=== PATIENT | male | born 1945 | race Caucasian/White ===

== ENCOUNTER → 2018-06-07 06:41 | Outpatient (CLI) | payer MEDICARE, OTHER, SELFPAY ==
[2018-06-07 07:37] LABS: Add Manual Diff / Slide Review NO; Basophils Percent Auto 0.6 % (0-2); Eosinophils Percent Auto 1.6 % (2-4); Hematocrit 42.6 % (41-53); Hemoglobin 14.5 g/dL (13.5-17.5); Lymphocytes Percent Auto 38.9 % (25-40); Mean Corpuscular HGB Conc 33.9 % (30-36); Mean Corpuscular Hemoglobin 31.3 PG (26-34); Mean Corpuscular Volume 92.3 fL (80-100); Neutrophils Absolute Auto 2000 /uL (3000-5900); Neutrophils Percent Auto 46.9 % (50-75); Platelet Count 150 X10^3/uL (150-400); Red Blood Cell Count 4.61 X10^6/uL (4.5-5.9); Red Cell Distribution Width 13.2 % (11.6-14.8); White Blood Cell Count 4.3 X10^3/uL (4.5-11.0)
[2018-06-07 07:46] LABS: Alanine Aminotransferase 33 IU/L (21-72); Albumin 4.8 g/dL (3.5-5.0); Albumin Globulin Ratio 1.9 (1.0-2.8); Alkaline Phosphatase 45 U/L (38-126); Aspartate Aminotransferase 26 IU/L (17-59); Bilirubin Total 0.7 mg/dL (0.2-1.3); Blood Urea Nitrogen 19 mg/dL (9-20); Calcium 9.6 mg/dL (8.4-10.2); Carbon Dioxide 30 mmol/L (22-32); Chloride 104 mmol/L (98-107); Cholesterol 142 mg/dL (140-199); Estimated Glomerular Filt Rate > 60.0 mL/min (>60); Globulin 2.5 g/dL (1.7-4.1); Glucose 140 mg/dL (80-110); HDL Cholesterol 47 mg/dL (40-60); HEMOLYSIS < 15 (0-50); LDL Cholesterol Calculated 38 mg/dL (<100); Potassium 4.8 mmol/L (3.4-5.1); Sodium 146 mmol/L (137-145); Total Protein 7.3 g/dL (6.3-8.2); Triglycerides 286 mg/dL (35-150)
[2018-06-07 08:18] LABS: Erythrocyte Sedimentation Rate 10 MM/HR (0-15)
== END ==
PROVIDERS: Visit Provider Internal Medicine Pulmonary Disease
DX: L40.9 Psoriasis, unspecified (principal); E11.40 Type 2 diabetes mellitus with diabetic neuropathy, unspecified; E11.65 Type 2 diabetes mellitus with hyperglycemia; K21.0 Gastro-esophageal reflux disease with esophagitis; E78.2 Mixed hyperlipidemia
CPT/HCPCS: 36415; 80053; 80061; 83036; 85025; 85651

== ENCOUNTER → 2019-02-28 08:34 | Outpatient (CLI) | payer MEDICARE, OTHER, SELFPAY ==
[2019-02-28 10:54] LABS: Alanine Aminotransferase 27 IU/L (21-72); Albumin 4.6 g/dL (3.5-5.0); Albumin Globulin Ratio 1.6 (1.0-2.8); Alkaline Phosphatase 45 U/L (38-126); Aspartate Aminotransferase 25 IU/L (17-59); Bilirubin Total 0.9 mg/dL (0.2-1.3); Blood Urea Nitrogen 19 mg/dL (9-20); C-Reactive Protein Quant 0.6 mg/dL (<1.0); Calcium 9.4 mg/dL (8.4-10.2); Carbon Dioxide 29 mmol/L (22-32); Chloride 101 mmol/L (98-107); Cholesterol 225 mg/dL (140-199); Estimated Glomerular Filt Rate > 60.0 mL/min (>60); Globulin 2.8 g/dL (1.7-4.1); Glucose 152 mg/dL (80-110); HDL Cholesterol 39 mg/dL (40-60); HEMOLYSIS 19 (0-50); LDL Cholesterol Calculated 115 mg/dL (<100); Lipase 47 U/L (23-300); Potassium 4.3 mmol/L (3.4-5.1); Sodium 139 mmol/L (137-145); Total Protein 7.4 g/dL (6.3-8.2); Triglycerides 353 mg/dL (35-150)
[2019-02-28 10:55] LABS: Add Manual Diff / Slide Review NO; Basophils Absolute Auto 0 /uL (0-100); Basophils Percent Auto 0.5 % (0-2); Eosinophils Absolute Auto 100 /uL (0-450); Eosinophils Percent Auto 2.1 % (2-4); Hematocrit 42.5 % (41-53); Hemoglobin 14.4 g/dL (13.5-17.5); Lymphocytes Absolute Auto 1300 /uL (1100-4500); Lymphocytes Percent Auto 36.3 % (25-40); Mean Corpuscular HGB Conc 33.8 % (30-36); Mean Corpuscular Hemoglobin 31.2 PG (26-34); Mean Corpuscular Volume 92.2 fL (80-100); Monocytes Absolute Auto 400 /uL (0-900); Monocytes Percent Auto 12.1 % (3-14); Neutrophils Absolute Auto 1800 /uL (1500-7000); Platelet Count 161 X10^3/uL (150-400); Red Blood Cell Count 4.61 X10^6/uL (4.5-5.9); Red Cell Distribution Width 13.6 % (11.6-14.8); White Blood Cell Count 3.6 X10^3/uL (4.5-11.0)
[2019-02-28 11:21] LABS: Prostate Specific Antigen Scrn 0.096 ng/mL (0.1-4.0)
[2019-02-28 11:54] LABS: Erythrocyte Sedimentation Rate 9 MM/HR (0-15)
[2019-02-28 12:01] LABS: Free T4, Direct Thyroxine 1.26 ng/dL (0.78-2.19)
[2019-02-28 12:04] LABS: Vitamin D 25 Hydroxy (D3) 29.6 ng/mL (30.0-100.0)
[2019-02-28 12:16] LABS: Thyroid Stimulating Hormone 1.95 uIU/mL (0.47-4.68)
[2019-02-28 14:34] LABS: Hemoglobin A1C% w Est Avg Glu 6.4 % (4.0-6.0)
[2019-02-28 18:29] LABS: Amylase 58 U/L (30-110)
== END ==
PROVIDERS: Visit Provider Internal Medicine Pulmonary Disease
DX: K21.0 Gastro-esophageal reflux disease with esophagitis (principal); E11.40 Type 2 diabetes mellitus with diabetic neuropathy, unspecified; E11.65 Type 2 diabetes mellitus with hyperglycemia; R10.9 Unspecified abdominal pain; J45.21 Mild intermittent asthma with (acute) exacerbation; Z00.00 Encounter for general adult medical examination without abnormal findings
CPT/HCPCS: 36415; 80053; 80061; 82150; 82306; 83036; 83690; 84153; 84439; 84443; 85025; 85651; 86140; G0103

== ENCOUNTER 2019-03-04 05:06 | Emergency (ER) | payer MEDICARE, OTHER, SELFPAY ==
[2019-03-04 05:20] VITALS: BP 173/89; PULSE 76; RESP 18; TEMP 36.8; O2SAT 96; BMI 31.2
--- NOTE | 2019-03-04 05:22 | DI.RAD.S_ITS ---
PROCEDURE: XR CHEST 1V INDICATIONS: chest pain TECHNIQUE: One view of the chest was acquired. COMPARISON: [facility], , CHEST 2 VIEW, 01/14/2011, 13:20. FINDINGS: Surgical changes and devices: None. Lungs and pleura: Lungs are clear. No pleural effusions or pneumothorax. Mediastinum: Mediastinal contours appear normal. Heart size is normal. Bones and chest wall: No suspicious bony lesions. Overlying soft tissues appear unremarkable. IMPRESSION: Normal for age, source of current chest pain symptoms is not seen. Dictated by: Lucho Henriquez M.D. on 03/04/2019 at 8:11 Approved by: Lucho Henriquez M.D. on 03/04/2019 at 8:12
--- NOTE | 2019-03-04 05:22 | DI.CT.S_ITS ---
PROCEDURE: CT ABDOMEN PELVIS W CON INDICATIONS: pain TECHNIQUE: After the administration of intravenous contrast, 5 mm thick sections acquired from the diaphragm to the symphysis. 5 mm coronal and sagittal reformats were acquired. For radiation dose reduction, the following was used: automated exposure control, adjustment of mA and/or kV according to patient size. COMPARISON: None. FINDINGS: Image quality: Excellent. ABDOMEN: Lung bases: Lung bases are clear. Heart size is normal. Solid organs: Liver is normal in size and enhancement. The gallbladder fossa margin shows higher radiodensity than the liver parenchyma elsewhere, consistent with hepatic steatosis and focal sparing. Gallbladder appears normal. Biliary system is non dilated. Pancreas enhances normally. Spleen is normal in size and enhancement. No adrenal nodules. Kidneys demonstrate normal size and enhancement, without hydronephrosis. There are several simple water density renal cortical cysts incidentally noted, largest of which is at the lower third collecting system margin of the left kidney, measuring up to 2.9 cm. Peritoneum and bowel: Bowel loops demonstrate normal wall thickness and caliber. No free fluid or air. Nodes and vessels: No retroperitoneal or mesenteric adenopathy by size criteria. Aorta and inferior vena cava are normal in size. Miscellaneous: No ventral hernias. PELVIS: Genitourinary: Bladder wall thickness is normal. Miscellaneous: No inguinal hernias or adenopathy. Note is made of a abnormally prominent appendix measuring up to 16 x 20 mm in maximal axial dimension (series 2 image 57), without a periappendiceal abscess or significant periappendiceal inflammation. Extensive diverticulosis is present across the sigmoid colon, without definite acute diverticulitis. Bones: No suspicious bony lesions. No vertebral body compression fractures. IMPRESSION: 1. Abnormally prominent appendiceal caliber at 16 x 20 mm maximal dimensions, but without periappendiceal abscess or definite significant periappendiceal inflammation. 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 2. Prominent sigmoid diverticulosis without acute diverticulitis. 3. Fatty infiltration within the liver with focal sparing from this fatty infiltration of the gallbladder fossa margin. Dictated by: Lucho Henriquez M.D. on 03/04/2019 at 9:02 Approved by: Lucho Henriquez M.D. on 03/04/2019 at 9:08
--- NOTE | 2019-03-04 05:25 | ED.ABDPAIN ---
HPI - Abdominal Pain General Chief Complaint: Abdominal Pain Stated Complaint: PAIN IN MID ABD AREA, WEIGHT LOSS TIRED Time Seen by Provider: 03/04/19 05:09 Source: patient Mode of arrival: ambulatory Limitations: no limitations History of Present Illness HPI narrative: Patient is a 73-year-old male who presents with epigastric pain. He states he has lost about 25 lb in the last month he has had this pain off and on for at least the last few months but has progressively intensified. This evening it seems to have gotten significantly worse. He denies any chest pain or shortness of breath. He has no nausea. He has diarrhea he says he is about 4 times a day it is nonbloody. He feels overall fatigued. He did travel to [place] about 3 months ago he says symptoms have gotten worse since then. He saw his PCP just 4 days ago and mention it but was not having significant she is at the time of no further workup has been ordered. Related Data Previous Rx's Medication Instructions Recorded omeprazole 20 mg PO DAILY #14 cap 03/04/19 Allergies Allergy/AdvReac Type Severity Reaction Status Date / Time No Known Drug Allergies Allergy Verified 03/04/19 05:23 Review of Systems Review of Systems ROS Unobtainable: All systems reviewed & are unremarkable except as noted in HPI and below Constitutional Denies chills, Denies fever(s), Denies lethargy, Reports poor appetite, Denies weakness and Reports weight loss (25 lb over 1 month) Eyes Denies change in vision, Denies eye discharge, Denies irritation and Denies loss of vision Gastrointestinal Gastrointestinal: Reports abdominal pain, Denies nausea and Denies vomiting Genitourinary Denies hematuria, Denies flank pain, Denies urinary incontinence and Denies urinary urgency Musculoskeletal Denies back pain, Denies muscle weakness, Denies numbness and Denies tingling Integumentary/Breasts Denies pruritus, Denies erythema, Denies rash and Denies wounds Neurologic Denies loss of vision, Denies numbness, Denies tingling and Denies weakness [facility] Medical History Diabetes (Acute) Social History Smoking Status: Never smoker Social History Smoking Status: Never smoker Exam Initial Vital Signs Initial Vital Signs: Vital Signs Temperature 98.3 F 03/04/19 05:20 Pulse Rate 76 03/04/19 05:20 Respiratory Rate 18 03/04/19 05:20 Blood Pressure 173/89 H 03/04/19 05:20 Pulse Oximetry 96 03/04/19 05:20 GENERAL: Alert talkative elderly male and in [no acute] distress. HEENT: Head atraumatic,EOMI, pupils reactive, hard of hearing CARDIOVASCULAR: Regular rate and rhythm without murmurs, rubs or gallops. RESPIRATORY: Breath sounds equal bilaterally, no wheezes rales or rhonchi. ABDOMEN: Soft, minimal epigastric pain no guarding no rebound no right upper quadrant pain negative Saenz sign no lower abdominal pain : No CVA tenderness EXTREMITIES: Normal range of motion, no clubbing or edema. Neurovascularly intact NEUROLOGICAL: Alert and oriented x4.Normal gait and speech. Cranial nerves II through XII grossly intact. SKIN: Warm, dry, no laceration, no petechiae, no rashes or lesions. Course Orders Ordered: Discontinued Medications Sodium Chloride (Normal Saline 0.9%) 1,000 mls @ 150 mls/hr IV CONT CARMENZA Last Infusion: 03/04/19 07:16 Dose: 0 mls/hr Admin: 03/04/19 05:29 Dose: 150 mls/hr Ketorolac Tromethamine (Toradol) 15 mg IV NOW ONE Stop: 03/04/19 05:28 Last Admin: 03/04/19 05:30 Dose: 15 mg Pantoprazole Sodium (Protonix) 40 mg IV NOW ONE Stop: 03/04/19 05:23 Last Admin: 03/04/19 05:29 Dose: 40 mg Vital Signs - 8 hr 03/04/19 05:20 03/04/19 06:40 Temperature 98.3 F Pulse Rate 76 73 Respiratory Rate 18 Blood Pressure 173/89 H Blood Pressure [Left Arm] 125/59 L Pulse Oximetry 96 100 MDM - Abdominal Pain Lab Data Attestation: I reviewed the patient's lab results. Result diagrams: 03/04/19 05:25 03/04/19 05:25 Lab Results 03/04/19 03/04/19 Range/Units 05:25 05:25 WBC 4.0 L (4.5-11.0) X10^3/uL RBC 4.40 L (4.5-5.9) X10^6/uL Hgb 13.6 (13.5-17.5) g/dL Hct 40.0 L (41-53) % MCV 91.0 (80-100) fL MCH 31.0 (26-34) PG MCHC 34.1 (30-36) % RDW 13.2 (11.6-14.8) % Plt Count 155 (150-400) X10^3/uL Neut % (Auto) 37.4 L (50-75) % Lymph % (Auto) 45.2 H (25-40) % Perkins % (Auto) 14.6 H (3-14) % Eos % (Auto) 2.0 (2-4) % Baso % (Auto) 0.8 (0-2) % Neut # (Auto) 1500 (7084-1078) /uL Lymph # (Auto) 1800 (3518-5777) /uL Perkins # (Auto) 600 (0-900) /uL Eos # (Auto) 100 (0-450) /uL Baso # (Auto) 0 (0-100) /uL Sodium 142 (137-145) mmol/L Potassium 3.9 (3.4-5.1) mmol/L Chloride 106 (98-107) mmol/L Carbon Dioxide 25 (22-32) mmol/L BUN 22 H (9-20) mg/dL Creatinine 0.90 (0.66-1.25) mg/dL Estimated GFR > 60.0 (>60) mL/min BUN/Creatinine Ratio 24.4 H (6-22) Glucose 128 H (80-110) mg/dL Calcium 9.3 (8.4-10.2) mg/dL Total Bilirubin 0.6 (0.2-1.3) mg/dL AST 23 (17-59) IU/L ALT 26 (21-72) IU/L Alkaline Phosphatase 52 (38-126) U/L Total Creatine Kinase 74 (55-170) U/L CK-MB (CK-2) TNP CK-MB (CK-2) Rel Index TNP Troponin I < 0.012 (0.01-0.034) ng/mL Total Protein 7.4 (6.3-8.2) g/dL Albumin 4.4 (3.5-5.0) g/dL Globulin 3.0 (1.7-4.1) g/dL Albumin/Globulin Ratio 1.5 (1.0-2.8) Lipase 63 (23-300) U/L Imaging Data Chest x-ray: Attestation: I personally reviewed and interpreted this imaging study as follows: My impression: No acute cardiopulmonary process ECG Data Attestation: I personally reviewed and interpreted this ECG as follows: Prior ECG tracings: available for review Interpretation: Normal sinus rhythm rate 66 P are interval [address] changes no T-wave inversions does have a known right bundle branch block similar to previous EKG MDM Narrative Medical decision making narrative: The patient's abdominal cm blood work reassuring. Pain is been ongoing for a number of months. We will treat him for possible ulcer recommended outpatient follow-up. Discharge Plan Departure Patient Disposition: Home Clinical Impression: Gastric ulcer Qualifiers: Gastric ulcer chronicity: acute Gastric ulcer complication status: without hemorrhage or perforation Qualified Code(s): K25.3 - Acute gastric ulcer without hemorrhage or perforation Discharge Date/Time: 03/04/19 07:18 Interventions: ED Discharge Assessment Last Done: 03/04/19 07:17 Instructions: DI for Gastric Ulcer Activity Restrictions/Additional Instructions: *You have been diagnosed with gastric ulcer *What to do: At this time her CT scan and blood work are reassuring. No abnormality in her pancreas. Will try and treat you for a gastric ulcer at this time however further workup will need to be done with her PCP. *Continue to take medications as directed Omeprazole 20 mg once a day 30 minutes before your biggest meal *Follow up with your primary care provider in 2-3 days *Return to ER if you should have increasing pain, persistent vomiting or any new, worsening or concerning symptoms Prescriptions: New omeprazole 20 mg capsule,delayed release(DR/EC) 20 mg PO DAILY Qty: 14 RF: 0
[2019-03-04] MEDS: PANTOPRAZOLE 40 MG VIAL IV (05:29)
[2019-03-04] MEDS: SODIUM CHLORIDE 0.9% 1,000 ML 150 ML IV (05:29)
[2019-03-04] MEDS: KETOROLAC 60 MG/2 ML VIAL 15 MG IV (05:30)
[2019-03-04 05:39] LABS: Add Manual Diff / Slide Review NO; Basophils Absolute Auto 0 /uL (0-100); Basophils Percent Auto 0.8 % (0-2); Eosinophils Absolute Auto 100 /uL (0-450); Hemoglobin 13.6 g/dL (13.5-17.5); Lymphocytes Absolute Auto 1800 /uL (1100-4500); Lymphocytes Percent Auto 45.2 % (25-40); Mean Corpuscular HGB Conc 34.1 % (30-36); Monocytes Absolute Auto 600 /uL (0-900); Monocytes Percent Auto 14.6 % (3-14); Neutrophils Absolute Auto 1500 /uL (1500-7000); Neutrophils Percent Auto 37.4 % (50-75); Platelet Count 155 X10^3/uL (150-400); Red Cell Distribution Width 13.2 % (11.6-14.8)
[2019-03-04 05:48] LABS: Alanine Aminotransferase 26 IU/L (21-72); Albumin 4.4 g/dL (3.5-5.0); Albumin Globulin Ratio 1.5 (1.0-2.8); Alkaline Phosphatase 52 U/L (38-126); Aspartate Aminotransferase 23 IU/L (17-59); BUN Creatinine Ratio 24.4 (6-22); Bilirubin Total 0.6 mg/dL (0.2-1.3); Blood Urea Nitrogen 22 mg/dL (9-20); Calcium 9.3 mg/dL (8.4-10.2); Carbon Dioxide 25 mmol/L (22-32); Chloride 106 mmol/L (98-107); Creatine Kinase 74 U/L (55-170); Estimated Glomerular Filt Rate > 60.0 mL/min (>60); Glucose 128 mg/dL (80-110); HEMOLYSIS < 15 (0-50); Lipase 63 U/L (23-300); Potassium 3.9 mmol/L (3.4-5.1); Sodium 142 mmol/L (137-145); Total Protein 7.4 g/dL (6.3-8.2)
[2019-03-04 06:00] LABS: Troponin I < 0.012 ng/mL (0.01-0.034)
[2019-03-04 06:40] VITALS: BP 125/59; PULSE 73; O2SAT 100
== END 2019-03-04 07:18 | disposition home or self-care (01) ==
PROVIDERS: Emergency Provider Emergency Medicine
DX: K25.3 Acute gastric ulcer without hemorrhage or perforation (principal); R10.13 Epigastric pain
CPT/HCPCS: 36591; 71045; 74177; 80053; 82550; 83690; 84484; 85025; 93005; 96361; 96374; 96375; 99283; 99285; C9113; J1885; Q9967

== ENCOUNTER → 2019-12-09 10:57 | Outpatient (CLI) | payer MEDICARE, OTHER, SELFPAY | PROVIDERS: Referring Provider Internal Medicine; Visit Provider Internal Medicine | DX: Z03.818 Encounter for observation for suspected exposure to other biological agents ruled out (principal); K29.60 Other gastritis without bleeding | CPT/HCPCS: 36415; 86677; 86769 ==

== ENCOUNTER 2020-06-10 18:10 | Emergency (ER) | payer MEDICARE, OTHER, SELFPAY ==
[2020-06-10 18:13] VITALS: BP 168/91; PULSE 77; RESP 22; TEMP 37.2; O2SAT 98
--- NOTE | 2020-06-10 18:25 | DI.CT.S_ITS ---
PROCEDURE: CT THORACIC SPINE WO CON INDICATIONS: injury TECHNIQUE: Noncontrast 3 mm thick sections acquired through the region of interest in the thoracic spine. Sagittal and coronal reformats were then constructed. For radiation dose reduction, the following was used: automated exposure control. COMPARISON: [facility], CR, XR RIBS RT MIN 3V W CXR 1V, 06/10/2020, 18:16. [facility], CR, XR CHEST 1V, 03/04/2019, 6:11. [facility], CT, CT ABDOMEN PELVIS W CON, 03/04/2019, 6:06. FINDINGS: Image quality: Excellent. Bones: There is normal overall bony alignment. No acute vertebral body compression fractures. No suspicious sclerotic or lytic bony lesions. Central spinal canal is of normal overall caliber. Degenerative changes are seen throughout, with numerous levels of bridging endplate osteophytes anteriorly and worse on the right than on the left. Bridging endplate osteophytes are also seen involving the lower cervical spine. Soft tissues: Diffuse fatty liver infiltration is noted. There is a simple appearing water density cyst seen within the left kidney inferiorly that measures 3 cm. No paravertebral masses or hematomas. Visualized posteromedial lungs appear clear. IMPRESSION: No acute fractures are seen. Degenerative changes, including numerous bridging endplate osteophytes. Incidental note is made of: Fatty liver infiltration Simple appearing left renal cyst Dictated by: Varun Benton M.D. on 06/10/2020 at 18:06 Approved by: Varun Benton M.D. on 06/10/2020 at 18:08
--- NOTE | 2020-06-10 18:25 | DI.RAD.S_ITS ---
PROCEDURE: XR RIBS RT MIN 3V W CXR 1V INDICATIONS: injury TECHNIQUE: 2 views of the right ribs were acquired, along with a single view chest. COMPARISON: [facility], CT, CT THORACIC SPINE WO CON, 06/10/2020, 18:30. [facility], CR, XR CHEST 1V, 03/04/2019, 6:11. FINDINGS: Surgical changes and devices: None. Bones and chest wall: A marker is placed upon the area of clinical concern. Within this region, no displaced rib fracture or other significant rib abnormality can be seen. No rib fractures are seen elsewhere. No suspicious bony lesions. Age-appropriate bony degenerative changes are seen. Overlying soft tissues appear unremarkable. Lungs and pleura: No pleural effusions or pneumothorax. Lungs appear clear. Mediastinum: The cardiac contours are within normal limits. The aorta demonstrates calcification and tortuosity. IMPRESSION: No displaced rib fractures are seen. No pneumothorax. Dictated by: Varun Benton M.D. on 06/10/2020 at 18:05 Approved by: Varun Benton M.D. on 06/10/2020 at 18:06
--- NOTE | 2020-06-10 18:51 | ED.FALL ---
HPI - Fall <CARA Jimenez - Last Filed: 06/10/20 20:44> General Chief Complaint: Fall Stated Complaint: fall, thinks cracked a rib Time Seen by Provider: 06/10/20 18:13 Source: patient Mode of arrival: Ambulatory History of Present Illness HPI Narrative: 74yo male presents to the ED for back and right-sided rib pain that started last night. He states he went to shut the lights off on the deck when he tripped over some cords and fell on a ceramic pot on his right side. Patient states is able to get up without any concerns but developed spine and right-sided rib pain. He states the pain is worse with a deep breath, movement, or palpation to the area. He has been applying ice without much relief. He denies any symptoms prior or post fall. Patient denies any dizziness, chest pain, shortness of breath, nausea, vomiting, diarrhea, abdominal pain, or any other concerns. Related Data Previous Rx's Medication Instructions Recorded omeprazole 20 mg PO DAILY #14 cap 03/04/19 Allergies Allergy/AdvReac Type Severity Reaction Status Date / Time No Known Drug Allergies Allergy Verified 03/04/19 05:23 Review of Systems <CARA Jimenez - Last Filed: 06/10/20 20:44> Review of Systems Narrative: REVIEW OF SYSTEMS: GENERAL: Denies fever or chills. HENT: No head trauma. EYES: No double vision or vision loss. CARDIOVASCULAR: No chest pain or syncope. RESPIRATORY: No shortness of breath or cough. GASTROINTESTINAL: No nausea, vomiting, diarrhea, or constipation. GENITOURINARY: No flank pain. MUSCULOSKELETAL: Complains of right rib and mid back pain, see HPI. INTEGUMENTARY: No rash, lesions, or pruritus. NEURO: No numbness, tingling. PSYCH: No behavior or mood changes. Patient History <CARA Jimenez - Last Filed: 06/10/20 20:44> Medical History Diabetes (Acute) Social History Smoking Status: Never smoker Smoking Status: Never smoker alcohol intake frequency: 0-2 drinks per day Substance Use Type: does not use Exam <CARA Jimenez Last Filed: 06/10/20 20:44> Initial Vital Signs Initial Vital Signs: Vital Signs Temperature 98.9 F 06/10/20 18:13 Pulse Rate 77 06/10/20 18:13 Respiratory Rate 22 06/10/20 18:13 Blood Pressure 168/91 H 06/10/20 18:13 Pulse Oximetry 98 06/10/20 18:13 PHYSICAL EXAMINATION: GENERAL: Well groomed, alert, and cooperative. Answers questions promptly and appropriately. Vital signs noted. HENT: Normocephalic, atraumatic. EYES: Symmetrical, sclera white, no periorbital swelling. CARDIOVASCULAR: S1 and S2 sounds normal. Regular rate and rhythm, no murmurs, clicks, or bruits. No pedal edema. RESPIRATORY: Normal respiratory rate, trachea midline, airway patent. No stridor, nasal flaring or accessory muscle use. Lungs are clear in all smith. MUSCULOSKELETAL: Bruising noted over thoracic spine, tenderness to spinal palpation-no obvious deformities, right lower rib pain with palpation. Normal gait and coordination. Equal tone and mass bilaterally. 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 EXTREMITIES: CMS intact. SKIN: Warm, dry, soft, appropriate color for ethnicity. No lesions, rashes, or wounds. NEURO: Alert and Oriented X 3. No sensory deficits. PSYCH: Appropriate affect and mood. <Hemal Rocha DO - Last Filed: 06/10/20 21:33> Initial Vital Signs Initial Vital Signs: Vital Signs Temperature 98.9 F 06/10/20 18:13 Pulse Rate 77 06/10/20 18:13 Respiratory Rate 22 06/10/20 18:13 Blood Pressure 168/91 H 06/10/20 18:13 Pulse Oximetry 98 06/10/20 18:13 Course <Amy FoyCARA cervantes - Last Filed: 06/10/20 20:44> Course Course Narrative: Patient given Toradol in the ED, reports significant improvement in pain. Orders Ordered: ED Orders 06/10/20 18:25 CT thoracic spine wo con Stat XR ribs RT min 3V w CXR1V Stat Discontinued Medications Cyclobenzaprine HCl (Flexeril 10 Mg Prepack) 1 bottle MIS SEEINSTR ONE Stop: 06/10/20 19:29 Last Admin: 06/10/20 19:33 Dose: 1 bottle Documented by: JUMANA Ketorolac Tromethamine (Toradol) 30 mg IM NOW ONE Stop: 06/10/20 18:55 Last Admin: 06/10/20 19:01 Dose: 30 mg Documented by: KAYA Vital Signs Vital signs: Vital Signs - 8 hr 06/10/20 18:13 06/10/20 19:32 Temperature 98.9 F Pulse Rate 77 66 Respiratory Rate 22 18 Blood Pressure 168/91 H 161/84 H Pulse Oximetry 98 99 <Hemal Rocha DO - Last Filed: 06/10/20 21:33> Orders Ordered: ED Orders 06/10/20 18:25 CT thoracic spine wo con Stat XR ribs RT min 3V w CXR1V Stat Discontinued Medications Cyclobenzaprine HCl (Flexeril 10 Mg Prepack) 1 bottle MISC SEEINSTR ONE Stop: 06/10/20 19:29 Last Admin: 06/10/20 19:33 Dose: 1 bottle Documented by: JUMANA Ketorolac Tromethamine (Toradol) 30 mg IM NOW ONE Stop: 06/10/20 18:55 Last Admin: 06/10/20 19:01 Dose: 30 mg Documented by: KAYA Vital Signs Vital signs: Vital Signs - 8 hr 06/10/20 18:13 06/10/20 19:32 Temperature 98.9 F Pulse Rate 77 66 Respiratory Rate 22 18 Blood Pressure 168/91 H 161/84 H Pulse Oximetry 98 99 MDM - Fall <CARA Jimenez - Last Filed: 06/10/20 20:44> Medical Records Attestation: I reviewed the patient's medical records. Lab Data Attestation: I reviewed the patient's lab results. Imaging Data Rib Xray: Radiologist's Impression: [address] [address] XRay Report Signed Patient: Abdi Talley PMR#: [id number] : 4Acct:[id number] Age/Sex: 74 / MDate of Service: 06/10/20 Loc: ED Accession Number: [id number] Procedure: XR ribs RT min 3V w CXR1V Ordering Provider: Amy Chatterjee PROCEDURE: XR RIBS RT MIN 3V W CXR 1V INDICATIONS: injury TECHNIQUE: 2 views of the right ribs were acquired, along with a single view chest. COMPARISON: [facility], CT, CT THORACIC SPINE WO CON, 06/10/2020, 18:30. [facility], CR, XR CHEST 1V, 03/04/2019, 6:11. FINDINGS: Surgical changes and devices: None. Bones and chest wall: A marker is placed upon the area of clinical concern. Within this region, no displaced rib fracture or other significant rib abnormality can be seen. No rib fractures are seen elsewhere. No suspicious bony lesions. Age-appropriate bony degenerative changes are seen. Overlying soft tissues appear unremarkable. Lungs and pleura: No pleural effusions or pneumothorax. Lungs appear clear. Mediastinum: The cardiac contours are within normal limits. The aorta demonstrates calcification and tortuosity. IMPRESSION: No displaced rib fractures are seen. No pneumothorax. Dictated by: Varun Benton M.D. on 06/10/2020 at 18:05 Approved by: Varun Benton M.D. on 06/10/2020 at 18:[address]: Radiologist's Impression: [place] [address] CT Scan Report Signed Patient: Abdi Talley PMR#: [id number] : 4Acct:[id number] Age/Sex: 74 / MDate of Service: 06/10/20 Loc: ED Accession Number: [id number] Procedure: CT thoracic spine wo con Ordering Provider: Amy Chatterjee PROCEDURE: CT THORACIC SPINE WO CON INDICATIONS: injury TECHNIQUE: Noncontrast 3 mm thick sections acquired through the region of interest in the thoracic spine. Sagittal and coronal reformats were then constructed. For radiation dose reduction, the following was used: automated exposure control. COMPARISON: [facility], CR, XR RIBS RT MIN 3V W CXR 1V, 06/10/2020, 18:16. [facility], CR, XR CHEST 1V, 03/04/2019, 6:11. [facility], CT, CT ABDOMEN PELVIS W CON, 03/04/2019, 6:06. FINDINGS: Image quality: Excellent. Bones: There is normal overall bony alignment. No acute vertebral body compression fractures. No suspicious sclerotic or lytic bony lesions. Central spinal canal is of normal overall caliber. Degenerative changes are seen throughout, with numerous levels of bridging endplate osteophytes anteriorly and worse on the right than on the left. Bridging endplate osteophytes are also seen involving the lower cervical spine. Soft tissues: Diffuse fatty liver infiltration is noted. There is a simple appearing water density cyst seen within the left kidney inferiorly that measures 3 cm. No paravertebral masses or hematomas. Visualized posteromedial lungs appear clear. IMPRESSION: No acute fractures are seen. Degenerative changes, including numerous bridging endplate osteophytes. Incidental note is made of: Fatty liver infiltration Simple appearing left renal cyst Dictated by: Varun Benton M.D. on 06/10/2020 at 18:06 Approved by: Varun Benton M.D. on 06/10/2020 at 18:08 [facility] Narrative Medical decision making narrative: 74-year-old male presenting to the emergency department for spinal and right rib pain post fall. X-ray was ordered due to concerns of rib fracture, patient had significant spinal tenderness with palpation so CT was ordered. No fractures seen, patient had significant improvement after administration of Toradol. I suspect his pain is most likely due to rib contusions. Less concern for organ involvement due to negative CT, location of bruising and pain above location of kidneys. No concerning symptoms such as syncope or symptoms prior to fall, patient a clear mechanical fall. He was encouraged to take NSAIDs and a muscle relaxer as needed for symptom management. Follow-up with PCP in the next 1-2 weeks. Return precautions given for new or worsening symptoms. Patient agreed to plan of care and verbalized understanding Discharge Plan Departure Patient Disposition: Home Clinical Impression: Pain in rib Discharge Date/Time: 06/10/20 19:37 Instructions: DI for Rib Contusion, How to Prevent Falls Activity Restrictions/Additional Instructions: Thank you for entrusting me with your care today. As discussed, your rib x-ray and spine CT are negative for any fractures. I suggest taking 400 mg of ibuprofen every 8 hours as needed for pain, you can take a 1000 mg of Tylenol 3 times a day. I prescribed you a muscle relaxer, these medications can make you sleepy, do not drive while taking these medications. Return to the emergency department for any new or worsening symptoms. Follow-up with PCP if symptoms continue. Prescriptions: No Action omeprazole 20 mg capsule,delayed release(DR/EC) 20 mg PO DAILY Qty: 14 RF: 0 <Hemal Rocha, DO - Last Filed: 06/10/20 21:33> Cosign ED Attending Cosignature Attestation: Dr Rocha Co-Sign Statement: I was available for consultation during this patient's emergency department visit. This chart is signed by myself for administrative purposes only. I did not have direct contact with this patient during this visit. They were seen independently by the APC.
[2020-06-10] MEDS: KETOROLAC 60 MG/2 ML VIAL 30 MG IM (19:01)
[2020-06-10 19:32] VITALS: BP 161/84; PULSE 66; RESP 18; O2SAT 99
[2020-06-10] MEDS: CYCLOBENZAPRINE 10 MG PREPACK 1 BOTTLE MISC (19:33)
== END 2020-06-10 19:37 | disposition home or self-care (01) ==
PROVIDERS: Emergency Provider Nurse Practitioner
DX: R07.81 Pleurodynia (principal); W19.XXXA Unspecified fall, initial encounter
CPT/HCPCS: 71101; 72128; 96372; 99284; J1885

== ENCOUNTER → 2020-10-22 15:04 | Outpatient (CLI) | payer MEDICARE, OTHER, SELFPAY | PROVIDERS: Visit Provider Orthopaedic Surgery | DX: M54.6 Pain in thoracic spine (principal); Z53.9 Procedure and treatment not carried out, unspecified reason ==

== ENCOUNTER → 2020-10-22 15:21 | Outpatient (CLI) | payer MEDICARE, OTHER, SELFPAY ==
[2020-10-22] MEDS: COVID-19 VACC, Ad26(JANSSEN)/PF 0.5 ML IM (15:29)
== END ==
PROVIDERS: Visit Provider Internal Medicine
DX: Z23 Encounter for immunization (principal)
CPT/HCPCS: 0031A; 91303

== ENCOUNTER → 2020-10-27 12:00 | Outpatient (CLI) | payer MEDICARE, OTHER, SELFPAY ==
--- NOTE | 2020-10-27 12:07 | DI.MRI.S_ITS ---
PROCEDURE: MR THORACIC SPINE WO CON INDICATIONS: THORACIC PAIN TECHNIQUE: Noncontrast sagittal T1 spine echo and T2 fast spin echo, sagittal STIR, axial T1 and T2 fast spin echo through the thoracic spine. COMPARISON: [facility] [place], CR, XR THORACIC SPINE 2 VIEWS, 10/15/2020, 15:32. [facility], CT, CT THORACIC SPINE WO CON, 06/10/2020, 18:30. FINDINGS: Image quality: This examination is limited by involuntary motion artifact. Alignment and Curvature: There is normal bony alignment. Bone Marrow: Marrow is of normal overall signal. No acute vertebral body compression fractures. Spinal Cord: Visualized spinal cord is normal in size and signal. Paraspinous Soft Tissues: No paravertebral masses. Miscellaneous: At the T6-T7 level, there is a mild central disc protrusion, as on series 7, image 28, with minimal central canal narrowing and mild mass effect upon the ventral spinal cord. Partially bridging anterior osteophytes are seen at this level. No significant neural foraminal narrowing can be seen. Milder degenerative changes are seen elsewhere. IMPRESSION: Study within normal limits for age, with focal T6-T7 degenerative change. Dictated by: Varun Benton M.D. on 10/27/2020 at 13:07 Approved by: Varun Benton M.D. on 10/27/2020 at 13:09
== END ==
PROVIDERS: PCP Internal Medicine; Referring Provider Orthopaedic Surgery; Visit Provider Orthopaedic Surgery
DX: M54.6 Pain in thoracic spine (principal); M47.814 Spondylosis without myelopathy or radiculopathy, thoracic region
CPT/HCPCS: 72146

== ENCOUNTER → 2021-01-07 10:33 | Outpatient (CLI) | payer MEDICARE, OTHER, SELFPAY ==
--- NOTE | 2021-01-07 | DI.US.S_ITS ---
PROCEDURE: US ABDOMEN COMPLETE INDICATIONS: RUQ/PERIUMBILICAL PAIN TECHNIQUE: Real-time scanning was performed of the abdominal and retroperitoneal organs, with image documentation. COMPARISON: None. FINDINGS: Liver: Increased hepatic parenchymal echogenicity indicative of diffuse hepatic steatosis. No focal hepatic mass. Gallbladder: Normally distended gallbladder. No gallbladder wall thickening age for pericholecystic fluid. No gallstones or sludge. Biliary ducts: Normal caliber. Pancreas: Partially obscured by overlying bowel gas. Visualized portions are normal. Spleen: Spleen is normal in size and homogeneous in echotexture. Kidneys: There is a 3.7 centimeter simple cyst in the inferior pole left kidney. Normal size and appearance and is otherwise. No shadowing calculus or hydronephrosis. Aorta: Visualized aorta is normal in caliber at less than 3 cm. Iliacs: Proximal common iliac arteries are normal in caliber at less than 2.5 cm. IVC: Intrahepatic inferior vena cava is patent. Miscellaneous: No free abdominal fluid. IMPRESSION: No acute finding. Mild to moderate hepatic steatosis. Dictated by: Taz Gibson M.D. on 01/07/2021 at 12:26 Approved by: Taz Gibson M.D. on 01/07/2021 at 12:28
== END ==
PROVIDERS: PCP Internal Medicine; Referring Provider Internal Medicine; Visit Provider Internal Medicine
DX: R10.33 Periumbilical pain (principal); R10.11 Right upper quadrant pain; K76.0 Fatty (change of) liver, not elsewhere classified
CPT/HCPCS: 76700

== ENCOUNTER → 2021-02-03 12:21 | Outpatient (CLI) | payer MEDICARE, OTHER, SELFPAY ==
[2021-02-04 05:57] LABS: PSA Ultrasensitive 0.075 ng/mL (0.000-4.000)
== END ==
PROVIDERS: PCP Internal Medicine; Referring Provider Internal Medicine; Visit Provider Internal Medicine
DX: C61 Malignant neoplasm of prostate (principal)
CPT/HCPCS: 36415; 84153

== ENCOUNTER → 2021-05-24 11:33 | Outpatient (CLI) | payer MEDICARE, OTHER, SELFPAY ==
--- NOTE | 2021-05-24 | DI.RAD.S_ITS ---
PROCEDURE: XR CHEST 2V INDICATIONS: WHEEZING TECHNIQUE: 2 views of the chest were acquired. COMPARISON: [facility], CR, XR CHEST 1V, 03/04/2019, 6:11. FINDINGS: Surgical changes and devices: None. Lungs and pleura: Mildly increased interstitial markings. No focal consolidation. No pleural effusion or pneumothorax. Mediastinum: Mediastinal contours are normal. Heart size is normal. Bones and chest wall: No suspicious bony abnormalities. Soft tissues appear unremarkable. IMPRESSION: Mildly increased interstitial markings. Findings could represent pulmonary edema or atypical infection. Dictated by: Taz Gibson M.D. on 05/24/2021 at 12:26 Approved by: Taz Gibson M.D. on 05/24/2021 at 12:27
[2021-05-24 12:19] LABS: Add Manual Diff / Slide Review NO; Basophils Absolute Auto 0 /uL (0-100); Basophils Percent Auto 0.7 % (0-2); Eosinophils Absolute Auto 100 /uL (0-450); Eosinophils Percent Auto 1.2 % (2-4); Hematocrit 41.3 % (41-53); Hemoglobin 13.9 g/dL (13.5-17.5); Lymphocytes Absolute Auto 1200 /uL (1100-4500); Lymphocytes Percent Auto 27.8 % (25-40); Mean Corpuscular HGB Conc 33.7 % (30-36); Monocytes Absolute Auto 400 /uL (0-900); Monocytes Percent Auto 9.1 % (3-14); Neutrophils Absolute Auto 2600 /uL (1500-7000); Neutrophils Percent Auto 61.2 % (50-75); Platelet Count 142 X10^3/uL (150-400); Red Blood Cell Count 4.49 X10^6/uL (4.5-5.9); Red Cell Distribution Width 13.6 % (11.6-14.8); White Blood Cell Count 4.3 X10^3/uL (4.5-11.0)
[2021-05-24 12:32] LABS: Hemoglobin A1C% w Est Avg Glu 8.4 % (4.0-6.0)
[2021-05-24 12:42] LABS: Erythrocyte Sedimentation Rate 20 MM/HR (0-15)
[2021-05-24 12:58] LABS: Alanine Aminotransferase 19 IU/L (<50); Albumin 4.6 g/dL (3.5-5.0); Albumin Globulin Ratio 1.6 (1.0-2.8); Alkaline Phosphatase 55 U/L (38-126); Aspartate Aminotransferase 23 IU/L (17-59); BUN Creatinine Ratio 17.8 (6-22); Bilirubin Total 0.7 mg/dL (0.2-1.3); Blood Urea Nitrogen 21 mg/dL (9-20); C-Reactive Protein Quant 0.8 mg/dL (<1.0); Carbon Dioxide 30 mmol/L (22-32); Chloride 102 mmol/L (98-107); Estimated Glomerular Filt Rate 59.9 mL/min (>60); Globulin 2.8 g/dL (1.7-4.1); Glucose 217 mg/dL (80-110); HEMOLYSIS < 15 (0-50); Potassium 5.1 mmol/L (3.4-5.1); Sodium 140 mmol/L (137-145); Total Protein 7.4 g/dL (6.3-8.2)
[2021-05-25 06:54] LABS: Cholesterol HDL Ratio 8.1 ratio (0.0-5.0); Cholesterol,Total 283 mg/dL (100-199); HDL Cholesterol 35 mg/dL (>39); LDL Cholesterol Cal 154 mg/dL (0-99); Triglycerides 488 mg/dL (0-149); VLDL Cholesterol Cal 94 mg/dL (5-40)
== END ==
PROVIDERS: PCP Internal Medicine; Referring Provider Internal Medicine; Visit Provider Internal Medicine
DX: R06.2 Wheezing (principal); E11.40 Type 2 diabetes mellitus with diabetic neuropathy, unspecified; E11.65 Type 2 diabetes mellitus with hyperglycemia; R63.8 Other symptoms and signs concerning food and fluid intake; E78.5 Hyperlipidemia, unspecified
CPT/HCPCS: 36415; 71046; 80053; 80061; 83036; 85025; 85651; 86140

== ENCOUNTER → 2021-06-23 11:21 | Outpatient (CLI) | payer MEDICARE, OTHER, SELFPAY ==
--- NOTE | 2021-06-23 | DI.RAD.S_ITS ---
PROCEDURE: XR CHEST 2V INDICATIONS: Wheezing TECHNIQUE: 2 views of the chest were acquired. COMPARISON: [facility], CR, XR CHEST 2V, 05/24/2021, 11:34. FINDINGS: Surgical changes and devices: None. Lungs and pleura: Redemonstrated coarsened interstitial markings. No consolidation, pleural effusions or pneumothorax. Mediastinum: Mediastinal contours are normal. Heart size is normal. Bones and chest wall: No suspicious bony abnormalities. Soft tissues appear unremarkable. IMPRESSION: No significant interval change. Dictated by: Rio Benitez M.D. on 06/23/2021 at 11:50 Approved by: Rio Benitez M.D. on 06/23/2021 at 11:51
== END ==
PROVIDERS: PCP Internal Medicine; Referring Provider Internal Medicine; Visit Provider Internal Medicine
DX: R06.2 Wheezing (principal)
CPT/HCPCS: 71046

== ENCOUNTER → 2021-06-25 13:15 | Outpatient (CLI) | payer MEDICARE, OTHER, SELFPAY ==
--- NOTE | 2021-06-25 | DI.CT.S_ITS ---
PROCEDURE: CT CHEST WO CON INDICATIONS: ABNORMAL CHEST XRAY TECHNIQUE: Noncontrast 5 mm thick sections acquired from the pulmonary apices to the posterior costophrenic angles. 1 mm lung window, 5 mm thick coronal and sagittal and 7 mm axial MIP reformats were then acquired. For radiation dose reduction, the following was used: automated exposure control, adjustment of mA and/or kV according to patient size. COMPARISON: [facility], , XR CHEST 2V, 06/23/2021, 11:26. FINDINGS: Lungs: Scattered bilateral upper and lower lobe diffuse reticular opacities, airway thickening and scarring. No definite honeycombing is seen. No acute consolidation. Pleura: No pleural effusion or pneumothorax. Heart: Normal in size. No pericardial effusion. Mild coronary calcifications. Chest nodes: Normal. Thyroid gland: Negative Aorta: Normal in size. Scattered atheromatous calcifications in the aorta. Pulmonary arteries: Normal. Esophagus: Normal. Upper abdomen and chest wall: No significant findings. Bones: No compression fracture. Diffuse spondylitic changes and facet arthropathy. IMPRESSION: No acute consolidation. Scattered nonspecific upper and lower lobe chronic interstitial disease. No specific fibrotic changes identified. Continued surveillance with CT chest could be performed as clinically warranted. Airway thickening in keeping with nonspecific bronchitis and/or reactive airways disease. Mild coronary atherosclerosis Dictated by: Carl Mitchell M.D. on 06/25/2021 at 15:12 Approved by: Carl Mitchell M.D. on 06/25/2021 at 15:17
[2021-06-25 14:01] LABS: Add Manual Diff / Slide Review NO; Basophils Absolute Auto 0 /uL (0-100); Basophils Percent Auto 0.9 % (0-2); Eosinophils Absolute Auto 100 /uL (0-450); Eosinophils Percent Auto 2.2 % (2-4); Hematocrit 40.3 % (41-53); Hemoglobin 14.2 g/dL (13.5-17.5); Lymphocytes Absolute Auto 1500 /uL (1100-4500); Lymphocytes Percent Auto 40.3 % (25-40); Mean Corpuscular HGB Conc 35.2 % (30-36); Mean Corpuscular Hemoglobin 31.8 PG (26-34); Mean Corpuscular Volume 90.3 fL (80-100); Monocytes Absolute Auto 400 /uL (0-900); Monocytes Percent Auto 10.1 % (3-14); Neutrophils Absolute Auto 1700 /uL (1500-7000); Neutrophils Percent Auto 46.5 % (50-75); Platelet Count 159 X10^3/uL (150-400); Red Blood Cell Count 4.46 X10^6/uL (4.5-5.9); Red Cell Distribution Width 13.5 % (11.6-14.8); White Blood Cell Count 3.7 X10^3/uL (4.5-11.0)
[2021-06-25 14:24] LABS: BUN Creatinine Ratio 19.8 (6-22); Blood Urea Nitrogen 20 mg/dL (9-20); Calcium 9.5 mg/dL (8.4-10.2); Carbon Dioxide 25 mmol/L (22-32); Chloride 100 mmol/L (98-107); Estimated Glomerular Filt Rate > 60.0 mL/min (>60); Glucose 157 mg/dL (80-110); HEMOLYSIS 33 (0-50); Potassium 4.6 mmol/L (3.4-5.1); Sodium 137 mmol/L (137-145)
[2021-06-25 14:32] LABS: NT-proBNP (BNP-Adult 18+) 91 pg/mL (<450)
[2021-06-25 14:39] LABS: Free T4, Direct Thyroxine 0.77 ng/dL (0.78-2.19)
[2021-06-25 14:40] LABS: Erythrocyte Sedimentation Rate 19 MM/HR (0-15)
[2021-06-25 14:53] LABS: Thyroid Stimulating Hormone 10.3 uIU/mL (0.47-4.68)
[2021-06-29 15:24] LABS: Triiodothyronine T3 Reverse 13.7 ng/dL (9.2-24.1)
== END ==
PROVIDERS: PCP Internal Medicine; Referring Provider Internal Medicine; Visit Provider Internal Medicine
DX: J84.9 Interstitial pulmonary disease, unspecified (principal); R93.89 Abnormal findings on diagnostic imaging of other specified body structures; I25.10 Atherosclerotic heart disease of native coronary artery without angina pectoris
CPT/HCPCS: 71250; 80048; 83880; 84439; 84443; 84482; 85025; 85651; Q9967

== ENCOUNTER → 2021-09-01 11:01 | Outpatient (CLI) | payer MEDICARE, OTHER, SELFPAY ==
[2021-09-01 13:49] LABS: Glucose 185 mg/dL (80-110)
[2021-09-01 14:05] LABS: Free T4, Direct Thyroxine 1.07 ng/dL (0.78-2.19)
[2021-09-01 14:12] LABS: Hemoglobin A1C% w Est Avg Glu 7.9 % (4.0-6.0)
[2021-09-01 14:19] LABS: Thyroid Stimulating Hormone 2.55 uIU/mL (0.47-4.68)
[2021-09-02 10:04] LABS: Fructosamine 344 umol/L (0-285)
== END ==
PROVIDERS: PCP Internal Medicine; Referring Provider Internal Medicine; Visit Provider Internal Medicine
DX: E11.40 Type 2 diabetes mellitus with diabetic neuropathy, unspecified (principal); E11.65 Type 2 diabetes mellitus with hyperglycemia; E03.9 Hypothyroidism, unspecified
CPT/HCPCS: 36415; 82947; 82985; 83036; 84439; 84443

== ENCOUNTER → 2022-01-17 10:30 | Outpatient (CLI) | payer MEDICARE, OTHER, SELFPAY ==
--- NOTE | 2022-01-17 | DI.US.S_ITS ---
PROCEDURE: US ABDOMEN COMPLETE INDICATIONS: Chronic kidney disease, stage 3a/Hepatic steatosis TECHNIQUE: Real-time scanning was performed of the abdominal and retroperitoneal organs, with image documentation. COMPARISON: [facility], CT, CT ABDOMEN PELVIS W CON, 03/04/2019, 6:06. [facility], US, US ABDOMEN COMPLETE, 01/07/2021, 11:03. FINDINGS: Liver: The liver demonstrates normal size. The liver demonstrates generalized moderately increased echogenicity. This decreases ultrasound sensitivity for detection of hepatic masses. Presumed fatty sparing can be seen adjacent to the gallbladder measuring up to 2 cm, which is similar to the [address] CT. Gallbladder: No findings of gallstones or sludge are seen. The gallbladder wall is not thickened, measuring 3 mm or less. No specific pericholecystic fluid is seen. The sonographic Saenz sign is negative. Biliary ducts: Intrahepatic bile ducts are non-dilated. Extrahepatic bile duct caliber measures 5 mm. Normal is 6-7 mm or less in diameter, or 10 mm or less post-cholecystectomy. Pancreas: Visualized portions of the pancreas are sonographically normal. Spleen: Spleen is normal in size and homogeneous in echotexture. Kidneys: Kidneys are normal in size. The kidneys demonstrate mildly increased overall echogenicity. Right kidney measures 11.5 cm long; left kidney measures 13 cm long. No hydronephrosis or nephrolithiasis. No solid masses. Within the left kidney, there is an anechoic nonvascular cyst that measures up to 3.1 cm. Aorta: Visualized aorta is normal in caliber at less than 3 cm. Iliacs: Proximal common iliac arteries are normal in caliber at less than 2.5 cm. IVC: Intrahepatic inferior vena cava is patent. Miscellaneous: No free abdominal fluid. IMPRESSION: Echogenic appearing kidneys, which is consistent with the given clinical history chronic kidney disease. Negative for hydronephrosis. The liver demonstrates increased echogenicity. This finding is nonspecific, yet it is most commonly attributed to fatty infiltration. Incidental note is made of: Simple appearing left renal cyst, 3.1 cm. Dictated by: Varun Benton M.D. on 01/17/2022 at 11:09 Approved by: Varun Benton M.D. on 01/17/2022 at 11:11
== END ==
PROVIDERS: PCP Internal Medicine; Referring Provider Internal Medicine; Visit Provider Internal Medicine
DX: E11.22 Type 2 diabetes mellitus with diabetic chronic kidney disease (principal); N18.31 Chronic kidney disease, stage 3a; E11.649 Type 2 diabetes mellitus with hypoglycemia without coma; K76.0 Fatty (change of) liver, not elsewhere classified; N28.1 Cyst of kidney, acquired; U09.9 Post COVID-19 condition, unspecified; R42 Dizziness and giddiness; R53.82 Chronic fatigue, unspecified; E03.9 Hypothyroidism, unspecified; K27.9 Peptic ulcer, site unspecified, unspecified as acute or chronic, without hemorrhage or perforation
CPT/HCPCS: 36415; 76700; 80048; 83036; 84439; 84443; 85025; 85651; 86140

== ENCOUNTER → 2022-01-17 11:42 | Outpatient (CLI) | payer MEDICARE, OTHER, SELFPAY ==
[2022-01-17 12:36] LABS: Add Manual Diff / Slide Review NO; Basophils Absolute Auto 0 /uL (0-100); Basophils Percent Auto 0.7 % (0-2); Eosinophils Absolute Auto 100 /uL (0-450); Eosinophils Percent Auto 2.1 % (2-4); Hematocrit 40.1 % (41-53); Hemoglobin 13.7 g/dL (13.5-17.5); Lymphocytes Absolute Auto 1300 /uL (1100-4500); Lymphocytes Percent Auto 33.6 % (25-40); Mean Corpuscular HGB Conc 34.2 % (30-36); Mean Corpuscular Hemoglobin 30.8 PG (26-34); Mean Corpuscular Volume 90.1 fL (80-100); Monocytes Absolute Auto 400 /uL (0-900); Monocytes Percent Auto 11.3 % (3-14); Neutrophils Absolute Auto 2100 /uL (1500-7000); Neutrophils Percent Auto 52.3 % (50-75); Platelet Count 157 X10^3/uL (150-400); Red Blood Cell Count 4.44 X10^6/uL (4.5-5.9); Red Cell Distribution Width 13.8 % (11.6-14.8)
[2022-01-17 13:00] LABS: Hemoglobin A1C% w Est Avg Glu 8.2 % (4.0-6.0)
[2022-01-17 13:04] LABS: BUN Creatinine Ratio 16.5 (6-22); Blood Urea Nitrogen 17 mg/dL (9-20); C-Reactive Protein Quant 0.6 mg/dL (<1.0); Calcium 9.1 mg/dL (8.4-10.2); Carbon Dioxide 28 mmol/L (22-32); Chloride 101 mmol/L (98-107); Estimated Glomerular Filt Rate > 60 mL/min (>60); Glucose 220 mg/dL (80-110); HEMOLYSIS < 15 (0-50); Potassium 4.5 mmol/L (3.4-5.1); Sodium 136 mmol/L (137-145)
[2022-01-17 13:20] LABS: Erythrocyte Sedimentation Rate 40 MM/HR (0-15)
[2022-01-17 13:55] LABS: Free T4, Direct Thyroxine 0.67 ng/dL (0.78-2.19)
== END ==
PROVIDERS: PCP Internal Medicine; Referring Provider Internal Medicine; Visit Provider Internal Medicine
DX: E11.22 Type 2 diabetes mellitus with diabetic chronic kidney disease (principal); N18.31 Chronic kidney disease, stage 3a; E11.649 Type 2 diabetes mellitus with hypoglycemia without coma; R42 Dizziness and giddiness; R53.82 Chronic fatigue, unspecified; U09.9 Post COVID-19 condition, unspecified; E03.9 Hypothyroidism, unspecified; K27.9 Peptic ulcer, site unspecified, unspecified as acute or chronic, without hemorrhage or perforation; N28.1 Cyst of kidney, acquired; K76.0 Fatty (change of) liver, not elsewhere classified
CPT/HCPCS: 36415; 80048; 83036; 84439; 84443; 85025; 85651; 86140

== ENCOUNTER → 2022-04-26 13:19 | Outpatient (CLI) | payer MEDICARE, OTHER, SELFPAY | PROVIDERS: PCP Internal Medicine; Referring Provider Internal Medicine; Visit Provider Internal Medicine | DX: R07.89 Other chest pain (principal); R06.00 Dyspnea, unspecified; R53.83 Other fatigue | CPT/HCPCS: 93005 ==

== ENCOUNTER → 2022-06-22 09:38 | Outpatient (CLI) | payer MEDICARE, OTHER, SELFPAY ==
--- NOTE | 2022-06-22 | DI.ECHO.S_ITS ---
[facility]---------+ [facility] +---------+ : : [address] : [place] : : : : [id number] : : : : Phone: [phone]+ Echocardiogram Report + + :Name: XIN ARRINGTON Study Date: 06/22/2022 Height: 70 in : :[facility] ReadingLocation: Weight: 200 lb : : Gender: Male BSA: 2.1 m2 : :: 1945 Age: 76 yrs BP: 135/80 mmHg: :Reason For Study: DYSPNEA : :Ordering Physician: SULEMA HEMPHILL Performed By: Alana Russo : :Referring: SULEMA HEMPHILL : + + Interpretation Summary The ejection fraction is estimated to be 60-65%. The mitral valve leaflets appear mildly thickened, but open well. The aortic valve is mildly calcified. There is no aortic valve stenosis. There is mild tricuspid regurgitation. The right ventricular systolic pressure is estimated to be at least 40 mmHg based on an estimated right atrial pressure of 3 mm Hg. Procedure: A two-dimensional transthoracic echocardiogram with color flow and Doppler was performed. The study quality was technically adequate. There is no prior echocardiogram noted for this patient. The patient was in sinus rhythm with heart rates between 58-77 bpm during the exam. Left Ventricle: The left ventricle is normal in size and wall thickness. The ejection fraction is estimated to be 60-65%. Left ventricular wall motion is normal. Diastolic parameters suggest a relaxation abnormality of the left ventricle, consistent with probable normal filling pressures. Right Ventricle: The right ventricle is normal in size and function. Atria: The left atrial size is normal. Right atrial size is normal. There is no Doppler evidence for an interatrial shunt. Mitral Valve: There is mild to moderate mitral annular calcification. The mitral valve leaflets appear mildly thickened, but open well. There is trace mitral regurgitation. Aortic Valve: The aortic valve is trileaflet. The aortic valve is mildly calcified. The aortic valve opens well. There is no aortic valve stenosis. No aortic regurgitation is present. Tricuspid Valve: The tricuspid valve is normal in structure and function. There is mild tricuspid regurgitation. The right ventricular systolic pressure is estimated to be at least 40 mmHg based on an estimated right atrial pressure of 3 mm Hg. Pulmonic Valve: The pulmonic valve leaflets are thin and pliable; valve motion is normal. There is trace pulmonic regurgitation. Great Vessels: The aortic root is normal size. The dimensions of the ascending aorta are normal. The IVC is of normal diameter and collapses greater than 50% with a sniff. This suggests a low right atrial pressure of 3 mm Hg. Pericardium/ Pleura There is no pericardial effusion. There is no pleural effusion. MMode/2D Measurements & Calculations LVIDd: 4.2 cm LVOT diam: 2.2 cm LVIDs: 2.9 cm Ao root diam: 3.8 cm FS: 30.3 % asc Aorta Diam: 3.7 cm EPSS: 1.1 cm Ao Arch Diam (Prox Trans): 2.9 cm IVSd: 1.00 cm LVPWd: 1.0 cm LV ayon. diameter/BSA (cm/m^2): 2.0 LV sys. diameter/BSA (cm/m^2): 1.4 LA A2 area: 21.3 cm2 RA long axis: 5.5 cm LA A4 area: 15.3 cm2 RA area: 12.7 cm2 LA length (vol): 5.6 cm RA vol: 24.9 ml LA vol: 49.1 ml RA : 11.9 ml/m2 LA vol index: 23.5 ml/m2 IVC diam: 1.7 cm RVD1 (basal): 3.8 cm RVD2 (mid): 3.7 cm TAPSE: 2.9 cm Doppler Measurements & Calculations Ao V2 max: 173.4 cm/sec LVOT Max Aj: 102.9 cm/sec Ao V2 mean: 121.3 cm/sec LV V1 max P.2 mmHg Ao max P.0 mmHg LV V1 VTI: 22.5 cm Ao mean P.5 mmHg ANGELA(I,D): 2.2 cm2 Ao V2 VTI: 36.9 cm ANGELA(V,D): 2.2 cm2 sev ratio: 0.61 ANGELA indexed to BSA (cm^2/m^2): 1.1 MV E max aj: 72.5 cm/sec TR max aj: 304.1 cm/sec MV A max aj: 117.4 cm/sec TR max P.0 mmHg MV E/A: 0.62 PA V2 max: 94.4 cm/sec Med Peak E' Aj: 5.3 cm/sec PA V2 mean: 68.0 cm/sec E/E' med: 13.7 PA mean P.0 mmHg Lat Peak E' Aj: 8.9 cm/sec PA pr(Accel): 34.5 mmHg E/E' lat: 8.1 E/e' average: 10.9 MV dec time: 0.34 sec SV(OT): 81.7 ml Reading Physician:03:02 PM
[2022-06-22 14:46] LABS: COVID19 -Nasal RAPID Negative (Negative)
--- NOTE | 2022-06-22 17:52 | DI.NM.S_ITS ---
DATE OF SERVICE: 06/22/2022 PROCEDURE PERFORMED: Exercise treadmill, converted to pharmacologic vasodilator stress and rest myocardial perfusion imaging study, with gating to assess ejection fraction and regional wall motion. ORDERING PROVIDER: Dr. Page Stanley. INDICATIONS: The patient is a 76-year-old male with a history of exertional chest discomfort. CARDIAC STRESS: The patient was initially stressed by treadmill but was unable to continue beyond stage I because of leg discomfort and therefore was converted to a pharmacologic study by injection of 0.4 mg of regadenoson. With this, he had a normal hemodynamic response. He had minimal dyspnea but no chest discomfort or other anginal symptoms. His resting ECG shows a left anterior fascicular block but is otherwise normal. With stress, there are no significant ST-segment shifts. He had occasional isolated PVCs but no complex ventricular ectopy. Per protocol, 24.6 millicuries of technetium-99m Myoview was injected and he was imaged 10 minutes later using a gated SPECT acquisition protocol. Earlier in the day while at rest, he had been injected with 11.9 millicuries of technetium- 99m Myoview and was imaged 30 minutes later, again using a gated SPECT acquisition protocol. FINDINGS: 1. Raw data: There is fairly good myocardial tracer uptake. The lung/heart ratio is normal at 0.34 with a normal TID ratio of 0.93. 2. Quantitated gated SPECT: Post-stress ejection fraction is estimated at 74% without any focal wall motion abnormality. The resting ejection fraction is 67% with a normal resting end-diastolic volume of 100 mL. 3. Myocardial perfusion imaging: Post-stress supine images show a fairly normal perfusion pattern with a very subtle mid inferior wall defect which resolves on prone imaging consistent with diaphragmatic attenuation. The resting images show a similar perfusion pattern without any significant improvement. IMPRESSION: 1. Normal myocardial perfusion study. 2. Subtle fixed mid inferior wall perfusion defect that resolves on prone imaging, consistent with diaphragmatic attenuation. There is no evidence for myocardial ischemia or previous myocardial infarction. 3. Normal left ventricular systolic function without any focal wall motion abnormality. 4. Exercise limited by leg discomfort but no angina with pharmacologic stress. No ECG abnormalities or arrhythmias except for occasional isolated PVCs.. Abdi Talley - Reggie/nina doc#: [id number]/job#: [id number] dd: 06/22/2022 17:02:00 dt: 06/22/2022 17:34:00 DICTATING MD/COPIES TO: Tyler Saravia MD COPIES MNE: ALYSON;
== END ==
PROVIDERS: PCP Internal Medicine; Referring Provider Internal Medicine; Visit Provider Internal Medicine
DX: I07.1 Rheumatic tricuspid insufficiency (principal); R07.89 Other chest pain; I34.81 Nonrheumatic mitral (valve) annulus calcification; R06.09 Other forms of dyspnea; R42 Dizziness and giddiness; R53.83 Other fatigue; Z20.822 Contact with and (suspected) exposure to COVID-19
CPT/HCPCS: 78452; 87635; 93017; 93306; A9502; J2785

== ENCOUNTER → 2022-06-29 13:40 | Outpatient (CLI) | payer MEDICARE, OTHER, SELFPAY ==
[2022-06-29 14:25] LABS: C-Reactive Protein Quant 0.6 mg/dL (<1.0)
[2022-06-29 14:27] LABS: Erythrocyte Sedimentation Rate 28 MM/HR (0-15)
[2022-06-29 16:38] LABS: Appearance Urine UA CLEAR; Bilirubin Urine UA NEGATIVE (NEGATIVE); Color Urine UA YELLOW; Glucose Urine UA TRACE g/dL (Negative); Ketones Urine UA TRACE (NEGATIVE); Leukocyte Esterase Urine UA TRACE (NEGATIVE); Nitrite Urine UA NEGATIVE (Negative); Occult Blood Urine UA NEGATIVE (Negative); Protein Urine UA TRACE (Negative); Specific Gravity Urine UA 1.025 (1.000-1.035); Urobilinogen Urine UA 0.2 E.U./dL (0.2)
[2022-06-29 17:05] LABS: Bacteria Urine None Seen; Culture Indicated Urine Cult Not Indicated; RBC Urine 0-1/HPF (0-5/HPF); Sperm Urine Occasional; Squamous Epithelial Cell Urine 0-1 /HPF (0-5/HPF); WBC Urine 0-1/HPF (0-5/HPF)
[2022-06-30 07:09] LABS: PSA Ultrasensitive 0.082 ng/mL (0.000-4.000)
== END ==
PROVIDERS: PCP Internal Medicine; Referring Provider Internal Medicine; Visit Provider Internal Medicine
DX: C61 Malignant neoplasm of prostate (principal); N41.9 Inflammatory disease of prostate, unspecified
CPT/HCPCS: 36415; 81001; 84153; 85651; 86140

== ENCOUNTER → 2022-09-01 09:05 | Outpatient (CLI) | payer MEDICARE, OTHER, SELFPAY ==
[2022-09-01 09:59] LABS: Hemoglobin A1C% w Est Avg Glu 8.6 % (4.0-6.0)
[2022-09-01 10:31] LABS: Alanine Aminotransferase 25 IU/L (<50); Alkaline Phosphatase 62 U/L (38-126); Aspartate Aminotransferase 27 IU/L (17-59); BUN Creatinine Ratio 16.8 (6-22); Bilirubin Total 0.6 mg/dL (0.2-1.3); Blood Urea Nitrogen 17 mg/dL (9-20); Calcium 8.7 mg/dL (8.4-10.2); Carbon Dioxide 25 mmol/L (22-32); Chloride 102 mmol/L (98-107); Estimated Glomerular Filt Rate > 60 mL/min (>60); Glucose 222 mg/dL (80-110); HEMOLYSIS 31 (0-50); Potassium 4.2 mmol/L (3.4-5.1); Sodium 137 mmol/L (137-145); Total Protein 7.6 g/dL (6.3-8.2)
[2022-09-01 10:37] LABS: Free T4, Direct Thyroxine 0.77 ng/dL (0.78-2.19)
[2022-09-01 10:51] LABS: Thyroid Stimulating Hormone 3.19 uIU/mL (0.47-4.68)
[2022-09-02 17:17] LABS: Albumin 4.2 g/dL (3.5-5.0); Albumin Globulin Ratio 1.2 (1.0-2.8); Globulin 3.4 g/dL (1.7-4.1)
== END ==
PROVIDERS: PCP Internal Medicine; Referring Provider Internal Medicine; Visit Provider Internal Medicine
DX: E11.22 Type 2 diabetes mellitus with diabetic chronic kidney disease (principal); E03.9 Hypothyroidism, unspecified; N18.32 Chronic kidney disease, stage 3b; R30.0 Dysuria
CPT/HCPCS: 36415; 80053; 83036; 84439; 84443

== ENCOUNTER → 2022-11-10 08:45 | Outpatient (CLI) | payer MEDICARE, OTHER, SELFPAY ==
[2022-11-10 10:20] LABS: Testosterone 196 ng/dL (71.8-623)
== END ==
PROVIDERS: PCP Internal Medicine; Referring Provider Urology; Visit Provider Urology
DX: R68.82 Decreased libido (principal)
CPT/HCPCS: 36415; 84403

== ENCOUNTER → 2022-11-11 08:11 | Outpatient (CLI) | payer MEDICARE, OTHER, SELFPAY ==
[2022-11-11 09:47] LABS: Testosterone 232 ng/dL (71.8-623)
== END ==
PROVIDERS: PCP Internal Medicine; Referring Provider Urology; Visit Provider Urology
DX: R68.82 Decreased libido (principal)
CPT/HCPCS: 36415; 84403

== ENCOUNTER → 2023-01-30 11:19 | Outpatient (CLI) | payer MEDICARE, OTHER, SELFPAY ==
--- NOTE | 2023-01-30 | DI.RAD.S_ITS ---
PROCEDURE: XR CHEST 2V INDICATIONS: WHEEZING, SHORTNESS OF BREATH TECHNIQUE: 2 views of the chest were acquired. COMPARISON: [facility], CT, CT CHEST WO CON, 06/25/2021, 13:39. [facility], CR, XR CHEST 2V, 06/23/2021, 11:26. [facility], CR, XR CHEST 2V, 05/24/2021, 11:34. FINDINGS: Surgical changes and devices: None. Lungs and pleura: Coarse bilateral interstitial markings do not appear significantly changed when compared to the radiographs from 06/23/2021. No focal airspace consolidation. No pleural effusion or pneumothorax. Mediastinum: Mediastinal contours are normal. Heart size is normal. Bones and chest wall: No suspicious bony abnormalities. Soft tissues appear unremarkable. IMPRESSION: Stable chronic interstitial changes. No acute cardiopulmonary abnormality. Approved by: Henry Benitez M.D. on 01/30/2023 at 13:03
== END ==
PROVIDERS: PCP Internal Medicine; Referring Provider Internal Medicine; Visit Provider Internal Medicine
DX: R06.02 Shortness of breath (principal); R06.2 Wheezing
CPT/HCPCS: 71046

== ENCOUNTER → 2023-03-08 08:48 | Outpatient (CLI) | payer MEDICARE, OTHER, SELFPAY ==
[2023-03-08 10:40] LABS: Free T4, Direct Thyroxine 0.53 ng/dL (0.78-2.19)
[2023-03-08 10:54] LABS: Thyroid Stimulating Hormone 32.5 uIU/mL (0.47-4.68)
== END ==
PROVIDERS: PCP Internal Medicine; Referring Provider Internal Medicine Endocrinology, Diabetes & Metabolism; Visit Provider Internal Medicine Endocrinology, Diabetes & Metabolism
DX: E03.9 Hypothyroidism, unspecified (principal)
CPT/HCPCS: 36415; 84439; 84443

== ENCOUNTER → 2023-06-19 08:03 | Outpatient (CLI) | payer MEDICARE, OTHER, SELFPAY ==
[2023-06-19 10:26] LABS: Prostate Specific Antigen 0.083 ng/mL (0.10-4.00)
== END ==
PROVIDERS: PCP Internal Medicine; Referring Provider Urology; Visit Provider Urology
DX: Z85.46 Personal history of malignant neoplasm of prostate (principal)
CPT/HCPCS: 36415; 84153

== ENCOUNTER → 2023-07-18 10:55 | Outpatient (CLI) | payer MEDICARE, OTHER, SELFPAY ==
--- NOTE | 2023-07-18 11:36 | DI.RAD.S_ITS ---
PROCEDURE: XR CERVICAL SPINE 2V OR 3V INDICATIONS: paresthesia of skin, cervicalgia, left shoulder pain TECHNIQUE: 4 view(s) of the cervical spine were acquired. COMPARISON: None. FINDINGS: Bones: Lateral view extends from the skull base to C7. No acute fracture or traumatic subluxation. Straightening of the normal cervical lordosis. Marked multilevel degenerative changes with anterior osteophytosis, disc height loss and facet arthropathy, worse at C5-C6 and C6-C7. The lateral masses of C1 appear intact on the odontoid view. No suspicious bony lesions. Soft tissues: No prevertebral soft tissue swelling. IMPRESSION: 1. No displaced fracture or traumatic subluxation. 2. Marked multilevel degenerative changes of the spine, worse at C5-C6 and C6-C7. If clinical symptoms persist, consider MRI for further evaluation. Dictated by: Jatin Cornejo M.D. on 07/18/2023 at 17:49 Approved by: Jatin Cornejo M.D. on 07/18/2023 at 17:51
--- NOTE | 2023-07-18 11:36 | DI.RAD.S_ITS ---
PROCEDURE: XR SHOULDER LT MIN 2V INDICATIONS: paresthesia of skin, cervicalgia, left shoulder pain TECHNIQUE: 4 views of the shoulder were acquired. COMPARISON: None. FINDINGS: Bones: No fractures or dislocations. Normal glenohumeral alignment with mild joint space narrowing. Severe acromioclavicular joint space narrowing and juxta-articular osteophytosis. Coracoclavicular interval is congruent. No suspicious bony lesions. Visualized ribs appear intact. Soft tissues: No suspicious soft tissue calcifications. Visualized left lung is clear. IMPRESSION: 1. No acute bony abnormality. 2. 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 Dictated by: Jatin Cornejo M.D. on 07/18/2023 at 17:51 Approved by: Jatin Cornejo M.D. on 07/18/2023 at 17:52
[2023-07-18 12:52] LABS: Alanine Aminotransferase 23 IU/L (<50); Albumin 4.3 g/dL (3.5-5.0); Albumin Globulin Ratio 1.4 (1.0-2.8); Alkaline Phosphatase 55 U/L (38-126); Aspartate Aminotransferase 21 IU/L (17-59); BUN Creatinine Ratio 18.4 (6-22); Bilirubin Total 0.8 mg/dL (0.2-1.3); Blood Urea Nitrogen 25 mg/dL (9-20); Carbon Dioxide 28 mmol/L (22-32); Chloride 102 mmol/L (98-107); Estimated Glomerular Filt Rate 53 mL/min (>60); Glucose 252 mg/dL (80-110); HEMOLYSIS < 15 (0-50); Sodium 138 mmol/L (137-145); Total Protein 7.3 g/dL (6.3-8.2)
[2023-07-18 12:53] LABS: Hemoglobin A1C% w Est Avg Glu 9.6 % (4.0-6.0)
[2023-07-18 16:06] LABS: Creatinine Urine Random 197.9 mg/dL
[2023-07-18 16:13] LABS: Microalbumi Creatinin Ratio Ur 10.1 ug/mg CR (<30)
== END ==
PROVIDERS: PCP Internal Medicine; Referring Provider Internal Medicine; Visit Provider Internal Medicine
DX: M25.512 Pain in left shoulder (principal); E11.22 Type 2 diabetes mellitus with diabetic chronic kidney disease; N18.31 Chronic kidney disease, stage 3a; G89.29 Other chronic pain; R20.2 Paresthesia of skin; M54.2 Cervicalgia
CPT/HCPCS: 36415; 72040; 73030; 80053; 82043; 82570; 83036

== ENCOUNTER → 2023-08-18 10:24 | Outpatient (CLI) | payer MEDICARE, OTHER, SELFPAY ==
--- NOTE | 2023-08-18 10:26 | DI.MRI.S_ITS ---
PROCEDURE: MR CERVICAL SPINE WO CON INDICATIONS: Cervicalgia TECHNIQUE: Noncontrast sagittal T1 spin echo and T2 fast spin echo, sagittal STIR, foraminal oblique sagittal T2 fast spin echo, and axial gradient echo or T2 fast spin echo through the cervical spine. COMPARISON: None. FINDINGS: Image quality: Excellent. Alignment and Curvature: Trace anterolisthesis of C2 on C3. Trace anterolisthesis of C7 on T1. Bone Marrow: Marrow demonstrates normal overall signal. Spinal Cord: Visualized spinal cord has normal size and signal. No cerebellar tonsillar herniation. Paraspinous Soft Tissues: No paravertebral masses. Prevertebral soft tissues are normal in thickness. C2-C3: Right facet hypertrophy. No canal stenosis or foraminal stenosis. C3-C4: Disc bulge indenting on the cord. AP diameter of the central canal is 9.9 mm. Bilateral uncovertebral joint hypertrophy. [id number]-bf-[id number] right foraminal narrowing. Severe left foraminal narrowing with left foraminal C4 nerve root impingement. C4-C5: Focal central posterior disc protrusion indents on the ventral cord. AP diameter of the central canal is 9.5 mm. Bilateral facet hypertrophy, left greater than right. Bilateral uncovertebral joint hypertrophy. [id number] right foraminal narrowing. Moderate to severe left foraminal narrowing with a degree of left foraminal C5 nerve root impingement. C5-C6: Central posterior disc plus osteophyte mildly indents on the cord. No canal stenosis. AP diameter of the central canal is 10.9 mm. Left facet hypertrophy. No foraminal nerve root impingement. C6-C7: Central posterior disc bulge abuts the cord. AP diameter of the central canal is 9.8 mm. Bilateral facet hypertrophy. Foramina are patent. C7-T1: No canal stenosis or foraminal stenosis. Bilateral facet hypertrophy. IMPRESSION: 1. There is multilevel bilateral facet arthropathy. 2. Canal stenosis is borderline at C3-C4 and mild at C4-C5 and C6-C7 period 3. Multilevel foraminal narrowing as described above. Findings include severe left foraminal narrowing at C3-C4 and moderate to severe left foraminal narrowing at C4-C5. There is foraminal nerve root impingement at these levels. Dictated by: Ld eGorge M.D. on 08/18/2023 at 17:39 Approved by: Ld George M.D. on 08/18/2023 at 17:49
== END ==
LOC: MRI 10:25
PROVIDERS: PCP Internal Medicine; Referring Provider Internal Medicine; Visit Provider Internal Medicine
DX: M47.812 Spondylosis without myelopathy or radiculopathy, cervical region; M48.02 Spinal stenosis, cervical region; M25.512 Pain in left shoulder; R20.2 Paresthesia of skin; M54.2 Cervicalgia; G89.29 Other chronic pain
CPT/HCPCS: 72141

== ENCOUNTER → 2024-01-17 08:39 | Outpatient (CLI) | payer MEDICARE, OTHER, SELFPAY ==
[2024-01-17 11:14] LABS: Prostate Specific Antigen 0.073 ng/mL (0.10-4.00)
== END ==
PROVIDERS: PCP Internal Medicine; Referring Provider Urology; Visit Provider Urology
DX: Z85.46 Personal history of malignant neoplasm of prostate (principal)
CPT/HCPCS: 36415; 84153

== ENCOUNTER → 2024-07-03 12:11 | Outpatient (CLI) | payer MEDICARE, OTHER, SELFPAY ==
[2024-07-05 14:12] LABS: QuantiFERON Mitogen Value >10.00 IU/mL (.); QuantiFERON Nil Value 0.01 IU/mL (.); QuantiFERON TB Gold Plus Negative (Negative); QuantiFERON TB1 Ag Value 0.05 IU/mL (.); QuantiFERON TB2 Ag Value 0.07 IU/mL (.)
== END ==
LOC: LAB 12:12
PROVIDERS: PCP Internal Medicine; Referring Provider Dermatology; Visit Provider Dermatology
DX: L40.0 Psoriasis vulgaris (principal)
CPT/HCPCS: 36415; 86480

== ENCOUNTER → 2024-08-20 07:16 | Outpatient (CLI) | payer MEDICARE, OTHER, SELFPAY ==
[2024-08-20 08:46] LABS: Prostate Specific Antigen 0.114 ng/mL (0.10-4.00)
== END ==
PROVIDERS: PCP Internal Medicine; Referring Provider Urology; Visit Provider Urology
DX: Z85.46 Personal history of malignant neoplasm of prostate (principal); R39.9 Unspecified symptoms and signs involving the genitourinary system; Z92.3 Personal history of irradiation
CPT/HCPCS: 36415; 84153

== ENCOUNTER → 2024-08-29 13:23 | Outpatient (CLI) | payer MEDICARE, OTHER, SELFPAY ==
[2024-08-29 14:10] LABS: Alanine Aminotransferase 20 IU/L (<50); Albumin 4.5 g/dL (3.5-5.0); Albumin Globulin Ratio 1.7 (1.0-2.8); Alkaline Phosphatase 54 U/L (38-126); Aspartate Aminotransferase 26 IU/L (17-59); BUN Creatinine Ratio 20.4 (6-22); Bilirubin Total 0.6 mg/dL (0.2-1.3); Blood Urea Nitrogen 22 mg/dL (9-20); Calcium 9.3 mg/dL (8.4-10.2); Carbon Dioxide 29 mmol/L (22-32); Chloride 103 mmol/L (98-107); Estimated Glomerular Filt Rate > 60 mL/min (>60); Globulin 2.7 g/dL (1.7-4.1); Glucose 154 mg/dL (80-110); HEMOLYSIS < 15 (0-50); Potassium 4.1 mmol/L (3.4-5.1); Sodium 138 mmol/L (137-145); Total Protein 7.2 g/dL (6.3-8.2)
[2024-08-29 14:11] LABS: Hemoglobin A1C% w Est Avg Glu 6.9 % (4.0-6.0)
== END ==
LOC: LAB 13:25
PROVIDERS: PCP Internal Medicine; Referring Provider Internal Medicine; Visit Provider Internal Medicine
DX: E11.22 Type 2 diabetes mellitus with diabetic chronic kidney disease (principal); E78.5 Hyperlipidemia, unspecified; K85.20 Alcohol induced acute pancreatitis without necrosis or infection; N18.31 Chronic kidney disease, stage 3a
CPT/HCPCS: 36415; 80053; 80061; 82172; 83036; 83704; 86140

== ENCOUNTER → 2024-11-18 11:36 | Outpatient (CLI) | payer MEDICARE, OTHER, SELFPAY ==
--- NOTE | 2024-11-18 11:37 | DI.CT.S_ITS ---
PROCEDURE: CT CHEST WO CON INDICATIONS: Significant wheezing, XR with increased interstitial marking TECHNIQUE: Noncontrast 5 mm thick sections acquired from the pulmonary apices to the posterior costophrenic angles. 1 mm lung window, 5 mm thick coronal and sagittal and 7 mm axial MIP reformats were then acquired. For radiation dose reduction, the following was used: automated exposure control, adjustment of mA and/or kV according to patient size. COMPARISON: [facility], CT, CT CHEST WO CON, 06/25/2021, 13:39. FINDINGS: Image quality: Diagnostic. Some images are limited by patient motion artifacts. Compared to the prior exam there has been [id number] increase in diffuse prominent interstitial markings, peribronchial thickening and patchy ground-glass opacities predominantly in the lower lobes, inferior lingula, inferior right middle lobe and to a lesser degree in the anterior upper lobes on a background of chronic prominent interstitial markings, interstitial lung disease or other process. Findings raise the suspicion for bronchitis, viral infection, asthma or other process. Follow-up suggested [id number] calcifications of the aortic valve, mitral valve, mitral annulus and coronary arteries mildly progressed. Small sliding hiatal hernia new or increased. Moderate degenerative changes of the thoracic spine with multilevel anterior bridging osteophytes suggestive of diffuse idiopathic skeletal hyperostosis mildly progressed. No pneumothorax, no pleural effusion, no pericardial effusion, no lobar consolidation. Heart size within normal limits. Mild diffuse low-attenuation of the liver commonly hepatic steatosis or intrinsic hepatic disease unchanged. IMPRESSION: Progressed prominent interstitial markings, peribronchial thickening and patchy opacities as discussed above, bronchitis, viral infection, asthma or other process. Follow-up suggested. If symptoms persist or worsen, CT chest could be performed. Other chronic findings as above. Dictated by: Stew Finney M.D. on 11/18/2024 at 15:56 Approved by: Stew Finney M.D. on 11/18/2024 at 16:14
[2024-11-18 12:06] LABS: Add Manual Diff / Slide Review NO; Basophils Absolute Auto 0 /uL (0-100); Basophils Percent Auto 0.7 % (0-2); Eosinophils Absolute Auto 100 /uL (0-450); Eosinophils Percent Auto 1.6 % (2-4); Hematocrit 40.2 % (41-53); Hemoglobin 13.7 g/dL (13.5-17.5); Lymphocytes Absolute Auto 1000 /uL (1100-4500); Lymphocytes Percent Auto 26.9 % (25-40); Mean Corpuscular HGB Conc 34.1 % (30-36); Mean Corpuscular Hemoglobin 30.4 PG (26-34); Mean Corpuscular Volume 89.4 fL (80-100); Monocytes Absolute Auto 400 /uL (0-900); Monocytes Percent Auto 9.4 % (3-14); Neutrophils Absolute Auto 2400 /uL (1500-7000); Neutrophils Percent Auto 61.4 % (50-75); Platelet Count 141 X10^3/uL (150-400); Red Cell Distribution Width 13.7 % (11.6-14.8); White Blood Cell Count 3.9 X10^3/uL (4.5-11.0)
[2024-11-18 12:55] LABS: Prostate Specific Antigen 0.088 ng/mL (0.10-4.00)
== END ==
PROVIDERS: Urology; PCP Internal Medicine; Referring Provider Student in an Organized Health Care Education/Training Program; Visit Provider Student in an Organized Health Care Education/Training Program
DX: I34.81 Nonrheumatic mitral (valve) annulus calcification (principal); R06.00 Dyspnea, unspecified; R06.2 Wheezing; R39.9 Unspecified symptoms and signs involving the genitourinary system; Z85.46 Personal history of malignant neoplasm of prostate; K44.9 Diaphragmatic hernia without obstruction or gangrene; I25.10 Atherosclerotic heart disease of native coronary artery without angina pectoris; M47.814 Spondylosis without myelopathy or radiculopathy, thoracic region
CPT/HCPCS: 36415; 71250; 84153; 85025

== ENCOUNTER → 2024-12-03 13:15 | Outpatient (CLI) | payer MEDICARE, OTHER, SELFPAY | PROVIDERS: Referring Provider Student in an Organized Health Care Education/Training Program; Visit Provider Student in an Organized Health Care Education/Training Program | DX: R06.02 Shortness of breath (principal); R94.2 Abnormal results of pulmonary function studies; Z87.891 Personal history of nicotine dependence; R06.2 Wheezing; J84.9 Interstitial pulmonary disease, unspecified | CPT/HCPCS: 94060; 94726; 94729 ==

== ENCOUNTER → 2024-12-17 10:59 | Outpatient (CLI) | payer MEDICARE, OTHER, SELFPAY ==
--- NOTE | 2024-12-17 11:01 | DI.RAD.S_ITS ---
PROCEDURE: XR HIP W PEL IF DONE RT 2V INDICATIONS: Right hip pain TECHNIQUE: 2 views of the hip were acquired. COMPARISON: None. FINDINGS: Bones: No fractures or dislocations. Moderate osteoarthritic degenerative changes of the bilateral hips include joint space narrowing, marginal osteophytosis and acetabular subchondral sclerosis. No suspicious bony lesions. The visualized pelvic ring appears intact. Soft tissues: No suspicious soft tissue calcifications or masses. IMPRESSION: Degenerative changes of the bilateral hips without evidence of acute bony abnormality. Dictated by: Felipe Hernandez M.D. on 12/18/2024 at 0:32 Approved by: Felipe Hernandez M.D. on 12/18/2024 at 0:59
== END ==
PROVIDERS: PCP Family Medicine; Referring Provider Student in an Organized Health Care Education/Training Program; Visit Provider Student in an Organized Health Care Education/Training Program
DX: M25.551 Pain in right hip (principal)
CPT/HCPCS: 73502; 99214

== ENCOUNTER → 2025-02-26 07:53 | Outpatient (CLI) | payer MEDICARE, OTHER, SELFPAY ==
[2025-02-26 08:58] LABS: Hemoglobin A1C% w Est Avg Glu 6.7 % (4.0-6.0)
[2025-02-26 09:32] LABS: TSH w/ Reflex to FT4 5.91 uIU/mL (0.47-4.68)
[2025-02-26 09:33] LABS: Microalbumi Creatinin Ratio Ur 35.0 ug/mg CR (<30)
[2025-02-26 09:57] LABS: Free T4, Direct Thyroxine 1.05 ng/dL (0.78-2.19)
== END ==
PROVIDERS: PCP Family Medicine; Referring Provider Family Medicine; Visit Provider Family Medicine
DX: E03.9 Hypothyroidism, unspecified (principal); E11.42 Type 2 diabetes mellitus with diabetic polyneuropathy
CPT/HCPCS: 36415; 82043; 82570; 83036; 84439; 84443

== ENCOUNTER → 2025-03-04 13:57 | Outpatient (CLI) | payer MEDICARE, OTHER, SELFPAY ==
--- NOTE | 2025-03-04 13:58 | DI.RAD.S_ITS ---
PROCEDURE: XR CHEST 2V INDICATIONS: Cough, I LD TECHNIQUE: 2 views of the chest were acquired. COMPARISON: [facility], CR, XR CHEST 2V, 01/30/2023, 11:19. [facility], CT, CT CHEST WO CON, 11/18/2024, 11:44. FINDINGS: Surgical changes and devices: None. Lungs and pleura: Generalized interstitial prominence can be seen. No focal superimposed infiltrate can be seen. No pneumothorax or pleural effusions are seen. Low lung volumes are noted. This causes a crowded appearance to the lung markings and limits evaluation. Mediastinum: Mediastinal contours are normal. Heart size is normal. Bones and chest wall: No suspicious bony abnormalities. Age-appropriate bony degenerative changes are seen. Soft tissues appear unremarkable. IMPRESSION: Generalized interstitial prominence can be seen. Differential diagnosis includes baseline parenchymal coarsening, versus a mild degree of superimposed pulmonary edema. If clinically appropriate, a short-term followup chest series (with PA and lateral views) performed in deep inspiration is suggested for further evaluation. Dictated by: Varun Benton M.D. on 03/04/2025 at 13:47 Approved by: Varun Benton M.D. on 03/04/2025 at 13:48
== END ==
PROVIDERS: PCP Family Medicine; Referring Provider Family Medicine; Visit Provider Chiropractor
DX: J84.9 Interstitial pulmonary disease, unspecified (principal); R05.8 Other specified cough
CPT/HCPCS: 71046

== ENCOUNTER → 2025-04-24 10:19 | Outpatient (CLI) | payer MEDICARE, OTHER, SELFPAY ==
[2025-04-24 11:36] LABS: Prostate Specific Antigen 0.095 ng/mL (0.10-4.00)
== END ==
PROVIDERS: PCP Family Medicine; Referring Provider Urology; Visit Provider Urology
DX: R97.20 Elevated prostate specific antigen [PSA] (principal); Z85.46 Personal history of malignant neoplasm of prostate
CPT/HCPCS: 36415; 84153

== ENCOUNTER → 2025-08-11 13:07 | Outpatient (CLI) | payer MEDICARE, OTHER, SELFPAY ==
--- NOTE | 2025-08-11 13:08 | DI.CT.S_ITS ---
PROCEDURE: CT CHEST HIGH RESOLUTION INDICATIONS: Interstitial lung disease TECHNIQUE: Noncontrast 1.0 and 5.0 mm thick contiguous axial sections from the pulmonary apex to the posterior costophrenic angles, with 7 mm thick coronal and sagittal MIP reformats. 1 mm thick dynamic expiratory images acquired through the upper, mid, and lower lungs. 1.0 mm thick axial sections acquired from the ernst to the posterior costophrenic angles in the prone end-inspiration position. For radiation dose reduction, the following was used: automated exposure control, adjustment of mA and/or kV according to patient size. COMPARISON: [facility], CT, CT CHEST WO CON, 06/25/2021, 13:39. FINDINGS: Image quality: Diagnostic. Lower Neck: No enlarged lymph nodes. Thyroid: Hypoattenuating. Axillae: No enlarged lymph nodes. Chest Wall: Unremarkable. Bones: Unremarkable. Lungs and Pleura: To fuse peripheral reticulation, with slight basilar predominance. No honeycombing. No ground-glass. Bronchiectasis is present. Findings have progressed from 2020. New 4 x 6 mm nodule in the left lung apex (series 2, image 58). Heart: Cardiomegaly. Annular calcification mitral valve. Two vessel coronary calcifications. Thoracic Vessels: Dilated main pulmonary artery. Mediastinum and Angie: No enlarged lymph nodes. Esophagus: No wall thickening. Small hiatal hernia. hiatal hernia. Upper Abdomen: Visualized upper abdomen solid organs and bowel loops appear normal. IMPRESSION: Progressed interstitial lung disease, probable UIP pattern. Pulmonary hypertension. New 4 x 6 mm nodule in the left lung apex. Consider six-month follow-up given increased risk of malignancy. Dictated by: Eber Fox M.D. on 08/12/2025 at 8:56 Approved by: Eber Fox M.D. on 08/12/2025 at 9:00
== END ==
LOC: CT 13:08
PROVIDERS: PCP Family Medicine; Referring Provider Internal Medicine; Visit Provider Internal Medicine
DX: J84.9 Interstitial pulmonary disease, unspecified (principal); J47.9 Bronchiectasis, uncomplicated; I34.81 Nonrheumatic mitral (valve) annulus calcification; I25.10 Atherosclerotic heart disease of native coronary artery without angina pectoris; K44.9 Diaphragmatic hernia without obstruction or gangrene; R91.1 Solitary pulmonary nodule
CPT/HCPCS: 71250